=== PATIENT | female | born 1965 | race Caucasian/White ===

== ENCOUNTER 2017-09-30 16:55 | Emergency (ER) | payer MEDICAID, OTHER ==
[~2017-09-30 16:55] MED LIST: COU5T PO; ENOX100S3 SQ; MULT-785 PO
== END 2017-09-30 18:29 | disposition left against medical advice (07) ==
LOC: ER 16:56
DX: Z53.21 Procedure and treatment not carried out due to patient leaving prior to being seen by health care provider (principal)

== ENCOUNTER 2017-10-01 11:30 | Emergency (ER) | payer BC, OTHER ==
[~2017-10-01] VITALS: Ht 162.6 cm; Wt 105.0 kg
[2017-10-01 13:03] LABS: COLOR,URINE Yellow (Yellow); GLUCOSE, URINE Negative (Neg); KETONES,URINE Negative (Neg); LEUKOCYTE ESTERASE ,URINE Negative (Neg); NITRITES, URINE Negative (Neg); OCCULT BLOOD,URINE Large (Neg); PROTEIN,URINE Trace mg/dl (Neg); URINE HCG NEGATIVE (NEG); UROBILINOGEN,URINE 0.2 E.U/dL (0.2-1.0)
[2017-10-01 13:05] LABS: CLARITY,URINE SLIGHTLY CLOUDY (Clear); UA COLLECTION TYPE CLN CATCH MIDSTREAM
[2017-10-01 13:38] LABS: SQUAMOUS EPITHELIAL CELL,UR MANY /LPF (FEW)
[2017-10-01 13:39] LABS: MUCUS STRANDS FEW /LPF (Neg)
[2017-10-01 13:42] LABS: WBC,URINE 0-4 /HPF (0-4)
[2017-10-01 13:43] LABS: BACTERIA,URINE 1+ /HPF (Neg); RBC,URINE TNTC /HPF (0-2)
[2017-10-01 14:12] VITALS: BP 150/91
== END 2017-10-01 14:20 | disposition home or self-care (01) ==
LOC: ER 11:30
DX: S39.012A Strain of muscle, fascia and tendon of lower back, initial encounter (principal); E78.00 Pure hypercholesterolemia, unspecified; Z86.718 Personal history of other venous thrombosis and embolism; Z90.49 Acquired absence of other specified parts of digestive tract; Z88.0 Allergy status to penicillin; X58.XXXA Exposure to other specified factors, initial encounter; Y93.89 Activity, other specified; Y92.89 Other specified places as the place of occurrence of the external cause; Y99.8 Other external cause status
CPT/HCPCS: 74176; 81001; 81025; 99285